=== PATIENT | male | born 1950 | race Caucasian/White ===

== ENCOUNTER 2017-12-08 08:20 | Day surgery (SDC) | payer MEDICARE ==
[~2017-12-08] VITALS: Ht 182.9 cm; Wt 97.3 kg
[2017-12-08] MEDS ORDERED: IOHEXOL 350 MG/ML 100 ML BTL (for Cath Lab) OTHER ONE (08:21)
[2017-12-08] MEDS ORDERED: ASPIRIN 325 MG TAB ONE (09:10)
[2017-12-08 09:19] LABS: AUTOMATED NEUTROPHIL # 4.7 TH/MM3 (1.8-7.7); BASOPHIL # 0.1 TH/MM3 (0-0.2); BASOPHIL % 0.7 % (0.0-2.0); EOSINOPHIL # 0.2 TH/MM3 (0-0.4); EOSINOPHIL % 2.5 % (0.0-4.0); HEMATOCRIT 47.3 % (39.0-51.0); HEMOGLOBIN 16.1 GM/DL (13.0-17.0); LYMPH % 25.4 % (9.0-44.0); MEAN CELL VOLUME 97.4 FL (80.0-100.0); MEAN CORPUSCULAR HEMOGLOBIN 33.1 PG (27.0-34.0); MEAN PLATELET VOLUME 8.2 FL (7.0-11.0); MONO % 11.9 % (0.0-8.0); MONOCYTE # 0.9 TH/MM3 (0-0.9); NEUT % 59.5 % (16.0-70.0); PLATELET COUNT 286 TH/MM3 (150-450); RED BLOOD COUNT 4.86 MIL/MM3 (4.50-5.90); RED CELL DISTRIBUTION WIDTH 13.7 % (11.6-17.2); WHITE BLOOD COUNT 7.9 TH/MM3 (4.0-11.0)
[2017-12-08] MEDS ORDERED: METO50TA PO (09:22)
[2017-12-08] MEDS ORDERED: ASPI-516 CHEW (09:22)
[2017-12-08] MEDS ORDERED: PLAV75TA29 PO (09:22)
[2017-12-08 09:23] VITALS: BP 128/76; PULSE 58; RESP 18; TEMP 98.8; O2SAT 98
[2017-12-08 09:38] LABS: PROTHROMBIN TIME - PATIENT 10.1 SEC (9.8-11.6)
[2017-12-08 09:39] LABS: BICARBONATE 25.9 MEQ/L (21.0-32.0); CREATININE 0.87 MG/DL (0.60-1.30)
[2017-12-08] MEDS ORDERED: MORPHINE SULFATE 4 MG/ML INJ ONE (09:52)
[2017-12-08] MEDS ORDERED: MORPHINE SULFATE 4 MG/ML INJ IV PUSH ONE ×2 (09:52→10:15)
[2017-12-08] MEDS ORDERED: SODIUM CHLOR 0.9% 1000 ML INJ 1,000 ML IV SCH (10:15)
[2017-12-08] MEDS ORDERED: MIDAZOLAM HCL 2 MG/2 ML VIAL ONE (10:43)
[2017-12-08] MEDS ORDERED: HEPARIN-NS/PF INJ 1,000 ML ONE (10:43)
[2017-12-08] MEDS ORDERED: NITROGLYCERIN INJ 5 ML ONE (10:44)
[2017-12-08] MEDS ORDERED: HEPARIN SODIUM - IV 10,000 UNITS/10 ML VIAL ONE (10:44)
--- NOTE | 2017-12-08 11:46 | CATHPROC ---
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 (left) Popliteal Angiogram (manual) Tib, Ant. (right) Popliteal Angiogram (manual) Tib, Post (Left) Popliteal Angiogram (manual) Tib, Post (right) Popliteal Wire insertion Radial (right) Radial Art. Equipment Time Territory Account Executive Description Size Mfg Part Number Used/Scraped MPA-2 INFINITI 125CM [id number] CATHETER *[id number] 10:35 MALLINCKRODT SYRINGE, ANGIOMAT 150ML 150ML [id number] Used [id number] 10:35 [employer] PACK, CCL CUSTOM * Used *[id number] 10:35 [employer] PACER PEN, SKIN DUAL W/ RULER * Used *[id number] BAND, RADIAL COMPRESSION TR [id number] 11:37 [employer] MEDICAL 24CM Used SHORT 24 *[id number] 10:35 [employer] WIRE, EXCHANGE 260CM 3MMJ 260CM Used *[id number] 10:35 NAMIC MANIFOLD, 4 PORT * Used *[id number] 10:55 NAMIC TUBING, HIGH PRESSURE 48" 48" Used *[id number] 10:35 [employer] OMNIPAQUE, 300 MG, 150ML 150ML [id number] Used [id number] 10:35 [employer] MEDICAL BLANKET,WARM AIR CCL * Used *[id number] SHEATH, FR6 TRANSRADIAL RM*[id number] 10:39 [employer] MEDICAL FR 6 Used SLENDER 10CM *[id number] History: Current Medications Medication Dosage/Unit Route Frequency Last Date/Time Taken LOPRESSOR ASA PLAVIX History: Allergies Allergy Reaction No Known Allergies History: Risk Factors Family History of Hypertension Dyslipidemia Previous DE Previous Heart Failure Premature CAD Yes Yes Yes Yes No Prior Valve Prior PCI Prior PCIDate Prior CABG Surgery No Yes 09/08/2013 No Cerebrovascular Peripheral Artery Chronic Lung On Dialysis Diabetes Disease Disease Disease No Yes Yes Yes No History: Risk Factors Selection Items Current Smoker History: CV Disease Selection Items Known CAD History: Stress Tests Stress or Imaging Studies Performed No History: Other Disease Selection Items CAD COPD HTN History: Other Current Smoker Method Packs a Day Years Used Pack Years Yes Cigarettes 1 50 50 Labs Hgb (g/dl) Hct (%) WBC (l/cumm) Platelets (thousands) 11.60-17.00 35.00-51.00 4.00-11.00 150.00-450.00 16.1 47.3 7.9 286 Glucose (mg/dl) BUN (mg/dl) Creatinine (mg/dl) BUN:Creatinine (1:x) 74.00-106.00 7.00-18.00 0.50-1.30 10.00-20.00 90 8 0.8 10 INR (PTT:PT) 0.90-1.10 1 CPK-MB (ng/ML) 0.50-3.60 Not Drawn Medication Medication Total Dose (Bolus/Oral) Medication Total Dosage/Unit 1% XYLOCAINE 5 mL FENTANYL 100 mcg RADIAL COCKTAIL 5 mL (Bolus) VERSED 2 mg Medications (Bolus/Oral) Medication Time Given Dosage/Unit Administered By Reason VERSED 12/08/2017 10:57:54 AM 1 mg Ayleen Peters 1 mg VERSED given in lab by Ayleen Peters RN in Left Antecubital via Peripheral IV. FENTANYL 12/08/2017 10:58:00 AM 50 mcg Ayleen Peters 50 mcg FENTANYL given in lab by Ayleen Peters RN in Left Antecubital via Peripheral IV. 1% XYLOCAINE 12/08/2017 10:58:10 AM 5 mL Pepe Nance 5 mL 1% XYLOCAINE given in lab by Pepe Nance in Right Radial via Subcutaneous. Ntg 200mcg Verapamil 2.5mg Heparin RADIAL COCKTAIL 12/08/2017 11:06:30 AM 5 mL (Bolus) Pepe Nance 3000U 5 mL (Bolus) RADIAL COCKTAIL given in lab by Pepe Nance via Radial. Using [Solution Name]. R carmine: Ntg 200mcg Heparin 4000U. VERSED 12/08/2017 11:31:38 AM 1 mg Ayleen Peters 1 mg VERSED given in lab by Ayleen Peters, FILIBERTO in Left Antecubital via Peripheral IV. FENTANYL 12/08/2017 11:31:42 AM 50 mcg Ayleen Peters 50 mcg FENTANYL given in lab by Ayleen Peters RN in Left Antecubital via Peripheral IV. Medication (Drip) Medication Time Given Dosage/Unit Concentration/Unit Diluent (ml) Solution IV Solutions 12/08/2017 10:35:34 AM 0 mL (IV) 500 NaCl .9 IV Solutions given in lab by Ayleen Peters RN in Left Antecubital via Peripheral IV. Pump/Drip [place] w = 20 ml/hr using NaCl .9. Initial Case Assessment Cardiovascular HR Rhythm NIBP Chest Pain 51 sinus 129/77 0 Edema Present Skin color Skin None Normal Warm Dry Circulatory - Right Pulses Femoral Radial 2 2 Scale (0,1,2,3,4,d) Scale (0,1,2,3,4,d) Neurological State Oriented to time-place- Alert Moves all extremities person Respiration - General Respiration Rate SpO2 (%) O2 (lpm) (B/min) 8 99 0 Final Case Assessment Cardiovascular HR Rhythm NIBP Chest Pain 50 Sinus 127/74 0 Edema Present Skin color Skin None Normal Warm Dry Circulatory - Right Pulses Dorsalis Pedis Radial 1 2 Scale (0,1,2,3,4,d) Circulatory - Left Pulses Dorsalis Pedis Radial 1 Scale (0,1,2,3,4,d) Neurological State Oriented to time-place- Alert Moves all extremities person Respiration - General Respiration Rate SpO2 (%) O2 (lpm) (B/min) 20 95 0 Chronological Log Time Study Chronological Log 10:30:14 Patient arrived via Bed. 10:33:16 Patient Name, D.O.B, / Armband Verified By R.N. 10:33:16 Consent signed by the physician and the patient and verified by the [employer] staff. 10:33:17 Pre-op and post- op instructions given; patient acknowledges understanding of instructions. 10:33:18 Verbal Stimulation=2 Physical Stimulation=2 Airway=2 Respiration=2 TOTAL=8. (0=absent, 1=li mited, 2=present) 10:35:13 Presedation assessment performed by [employer] RN. 10:35:15 Allens test performed on the right radial and ulnar artery. 10:35:17 Patient has been NPO for More than 6Hrs. 10:35:17 Skin Breakdown- none per patient. 10:35:19 Patient Warmer Placed on the Table. 10:35:20 Roger Prominences Protected 10:35:23 A # 20 IV was noted in the Antecubital (left). Grade = 0 IV Solutions given in lab by Ayleen Peters, FILIBERTO in Left Antecubital via Peripheral IV. Pump/Dr ip Flow = 20 ml/hr using 10:35:34 NaCl .9. 10:35:35 History and physical on the chart or being dictated. Assessment: Initial Case, HR=51 BPM, Rhythm=sinus, FJKE=743/77 mmhg, Chest Pain=0, Edema=None, Color=Normal, Skin = Warm, Dry 10:35:36 Right Pulses: Femoral=2, Radial=2 Neurological: State=Alert, Ox3, FELIX Respiration: Resp=8 B/min, SpO2=99 %, O2=0 lpm Vitals capture started with the following parameters, Patient=Adult, Interval=5 min, Initial Pr wlwqru=968 mmHg, 10:35:45 Deflation Rate=5 mmHg, Cuff placed on Right Ankle 10:36:47 HR=52 bpm, ZADE=609/74 mmhg, SpO2=97.0 %, Resp=14 B/min, Pain=0, Josh=10, Chappell=2 10:40:40 Reference ECG taken 10:41:22 HR=52 bpm, FVHG=791/77 mmhg, SpO2=97.0 %, Resp=16 B/min, Pain=0, Josh=10, Chappell=2 10:43:46 Right Radial and groin(s) prepped with 2% chlorhexidine, and draped after a 3 min. waiting time. 10:46:19 HR=53 bpm, SASP=500/77 mmhg, SpO2=99.0 %, Resp=13 B/min, Pain=0, Josh=10, Chappell=2 10:47:49 MD patiñod 10:49:02 Pressure channel 1 zeroed. 10:50:10 MD arrived. 10:51:20 HR=54 bpm, YIDG=519/87 mmhg, SpO2=98.0 %, Resp=18 B/min, Pain=0, Josh=10, Chappell=2 10:56:21 HR=52 bpm, ZHXV=078/78 mmhg, SpO2=98.0 %, Resp=12 B/min, Pain=0, Josh=10, Chappell=2 Time Out. Correct patient, correct procedure, correct physician, labs, allergies, and equipment verified with laborer stores 10:56:48 team present. Fire risk assesment completed (see hard stop sheet for coding). Time Out Conc urred by MD and individual staff in procedure. 10:56:58 Case Start 10:57:54 1 mg VERSED given in lab by Ayleen Peters RN in Left Antecubital via Peripheral IV. 10:58:00 50 mcg FENTANYL given in lab by Ayleen Peters RN in Left Antecubital via Peripheral IV. 10:58:10 5 mL 1% XYLOCAINE given in lab by Pepe Nance in Right Radial via Subcutaneous. 11:01:24 HR=53 bpm, JLVG=155/77 mmhg, SpO2=95.0 %, Resp=25 B/min, Pain=0, Josh=10, Chappell=2 11:05:40 Access site was Radial Artery. A SHEATH, FR6 TRANSRADIAL SLENDER 10CM FR 6 was advanced into the Radial (right) using the Perc utaneous 11:06:11 technique. 11:06:23 HR=53 bpm, RQYB=282/74 mmhg, SpO2=95.0 %, Resp=20 B/min, Pain=0, Josh=10, Chappell=2 5 mL (Bolus) RADIAL COCKTAIL given in lab by Pepe Nance via Radial. Using [Solution Na me]. Reason: Ntg 11:06:30 200mcg Heparin 4000U. A MPA-2 INFINITI 125CM CATHETER FR 5 was advanced over a wire. OMNIPAQUE, 300 MG, 150ML 150ML w as used 11:07:20 for injections. 11:10:19 Abd Aorta (A3) angiogram, manually injected. 11:11:22 HR=57 bpm, UMIX=368/66 mmhg, SpO2=92.0 %, Resp=18 B/min, Pain=0, Josh=10, Chappell=2 11:16:58 HR=53 bpm, JKOO=822/67 mmhg, Resp=8 B/min, Pain=0, Josh=10, Chappell=2 11:19:39 Popliteal R (R10) angiogram, manually injected. 11:21:22 HR=53 bpm, UXOS=296/72 mmhg, SpO2=95.0 %, Resp=22 B/min, Pain=0, Josh=10, Chappell=2 11:21:40 Tib, Ant. (right) angiogram, manually injected. 11:22:39 Tib, Post (right) angiogram, manually injected. 11:24:45 A WIRE, EXCHANGE 260CM 3MMJ 260CM was inserted via Radial (right). 11:25:10 catheter redirected down the left iliac. 11:26:23 HR=52 bpm, GJMM=273/70 mmhg, SpO2=96.0 %, Resp=23 B/min, Pain=0, Josh=10, Chappell=2 11:28:21 SFA (left) angiogram, manually injected. 11:31:22 HR=52 bpm, YEVE=619/72 mmhg, SpO2=95.0 %, Resp=29 B/min, Pain=0, Josh=10, Chappell=2 11:31:38 1 mg VERSED given in lab by Ayleen Peters RN in Left Antecubital via Peripheral IV. 11:31:42 50 mcg FENTANYL given in lab by Ayleen Peters, FILIBERTO in Left Antecubital via Peripheral IV. 11:32:51 Popliteal L (L10) angiogram, manually injected. 11:33:06 Tib, Ant. (left) angiogram, manually injected. 11:35:35 Tib, Post (Left) angiogram, manually injected. 11:36:27 HR=49 bpm, CBKB=048/68 mmhg, SpO2=88.0 %, Resp=10 B/min, Pain=0, Josh=10, Chappell=2 11:37:29 Catheter was removed 11:38:15 Case End Radial Compression Device Used. 8 mLs of air placed in BAND, RADIAL COMPRESSION TR SHORT 24 24C M. Affected 11:40:19 hand 94 % O2 saturation. 11:41:22 HR=52 bpm, WNXD=530/74 mmhg, SpO2=93.0 %, Resp=27 B/min, Pain=0, Josh=10, Chappell=2 Assessment: Final Case, HR=50 BPM, Rhythm=Sinus, YBJA=267/74 mmhg, Chest Pain=0, Edema=None, Color=Normal, Skin = Warm, Dry Right Pulses: Dimitry Ped=1, Radial=2 11:41:26 Left Pulses: Dimitry Ped=1, Femoral=2 Neurological: State=Alert, Ox3, FELIX Respiration: Resp=20 B/min, SpO2=95 %, O2=0 lpm 11:42:25 No case complications noted. 11:42:27 Cine recording checked. 11:42:29 Bedside Report will be given. 11:42:56 Patient moved to stretcher 11:45:04 Vitals capture stopped. 11:46:41 Patient moved to stretcher End Study - Contrast Media Used In Study Contrast Total Opened (mL) Total Used (mL) Total Wasted (mL) Omnipaque 150 100 50 End Study - Maximum Contrast Load Max Contrast Load (mL) 608.2 End Study - Radiation Exposure Fluoro Time (minutes) 5.9 End Study - Patient Disposition Complications Transferred To Interventional Outcome No Outpatient Bed No attempt made
[2017-12-08] MEDS ORDERED: MISC INFORMATION XX ONE (12:00)
--- NOTE | 2017-12-08 13:54 | EKG ---
Date Performed: 12/08/2017 Time Performed: 09:16:08 PTAGE: 67 years EKG: Sinus bradycardia. Leftward axis Borderline ECG NO PREVIOUS TRACING DOCTOR: Elie Dye Interpretating Date/Time 12/08/2017 13:52:29
--- NOTE | 2017-12-09 00:12 | MA ---
cc: Pepe Nance DO DATE: 12/08/2017 PROCEDURE PERFORMED: Bilateral lower extremity angiogram, third order, ultrasound-guided access, moderate sedation 40 minutes. PREPROCEDURE DIAGNOSIS: Bilateral claudication with lifestyle limitations, abnormal ankle-brachial index. POSTPROCEDURE DIAGNOSIS: Severe peripheral artery disease with total occlusion of bilateral superficial femoral artery at the ostium to the popliteal, 1-vessel runoff on the right, 2-vessel runoff on the left. MEDICATIONS: Versed 2 mg, fentanyl 100 mcg, nitroglycerine 200 mcg, heparin 4000 units. CONTRAST USED: 100 mL. FLUOROSCOPY: 5.9 minutes. MODERATE SEDATION: 40 minutes. ESTIMATED BLOOD LOSS: 10 mL. PROCEDURAL SUMMARY: Raul Bell is a pleasant 67-year-old male who sees my partner, Dr. Askew, in the office and was noted to have significant claudication, which limits his lifestyle. He underwent ODILON testing, with significant disease noted in both lower extremities. Because of this, he was recommended peripheral angiogram. Risks, benefits and alternatives were explained to him and he consented as such. He was brought to the lab and prepped in the usual sterile fashion. As he was unable to tell which leg bothered him more, I felt it was reasonable to take an approach from the radial artery, as diagnostics could be done of both legs and if intervention needed, decisions could be made at that time for femoral access. Right radial artery was accessed using modified Seldinger technique and ultrasound guidance and placement of a 5/6 Nigerian slender sheath. This was easily aspirated and flushed. A multipurpose catheter was advanced to the distal aorta and angiogram was done under DSA. Multipurpose was then advanced into the right common iliac and angiogram with runoff was done of the right lower extremity. After this, DSA shots were done of the distal lower extremity. Multipurpose catheter was then directed into the left common iliac and an angiogram with runoff was done. After this, DSA shots were done of the distal lower extremity. Multipurpose catheter was removed over a J wire. Radial band was placed over the arteriotomy site for hemostasis. The patient left the cath lab manager cardiovascularly stable. FINDINGS: Right lower extremity: Common iliac has 30% disease at the ostium with calcification. Right internal iliac appears to be occluded. Right common femoral is patent, with mild calcification throughout. At its bifurcation, the SFA is occluded at the ostium. Distal collaterals are supplied by the profunda, reconstituting at the popliteal artery. Distal to the popliteal artery, the right anterior tibial appears to be occluded. There is 2-vessel runoff to the ankle, where the peroneal artery appears to be occluded and the posterior tibial supplies to the foot. LEFT LOWER EXTREMITY: Left common iliac appears to have 20-30% disease at the ostium with calcification. The left internal iliac appears occluded. The left external iliac has mild to moderate disease throughout. The left SFA is occluded at the ostium. There appears to be 2 profunda arteries which supply collaterals to the distal SFA/popliteal artery. Below the knee, the anterior tibial comes off relatively high and has jwikugrv-[id number] disease diffusely throughout. Distally, it appears that the posterior tibial and peroneal artery supply to the foot with the anterior tibial being occluded in the mid-ankle. IMPRESSION: 1. Severe claudication with lifestyle limitation. 2. Abnormal ankle-brachial index. 3. Severe peripheral artery disease with complete occlusion of the superficial femoral artery at the ostium down to the popliteal artery bilaterally, with 1-vessel runoff to the right lower extremity, 2-vessel runoff to the left lower extremity. RECOMMENDATIONS: 1. Mr. Bell appears to have significant peripheral artery disease, specifically total occlusion of his SFA, starting at the ostium down to the popliteal artery. 2. Because of this, I have asked Dr. Davila to review his films and see the patient in consultation in the office for further considerations of possible bypass surgery, as the significance of his disease would make it difficult for intervention, as the SFA is occluded totally at the ostium down to the popliteal artery. Thank you for allowing me to see Raul Bell. If there are any questions, please do no hesitate to call. DO DREW Charlton/MICHAEL , 11:32 PM , 12:11 AM
== END 2017-12-08 14:36 | disposition home or self-care (01) ==
LOC: HDOC 08:20 → HDIC 08:21 → HDOC 14:36
PROVIDERS: ATTEND Nuclear Medicine Nuclear Cardiology
DX: I73.9 Peripheral vascular disease, unspecified (principal); I70.92 Chronic total occlusion of artery of the extremities; R00.1 Bradycardia, unspecified; Z79.01 Long term (current) use of anticoagulants; Z79.899 Other long term (current) drug therapy
CPT/HCPCS: 36247; 36248; 75625; 75716; 80048; 85025; 85610; 85730; 93005; 99152; 99153; C1769; C1893; G0269; J1644; J2250; J2270; J3010; Q9967